=== PATIENT | female | born 1940 | race Two or more races ===

== ENCOUNTER 2019-02-05 13:23 | Outpatient (CLI) | payer OTHER | END 2019-02-05 13:27 | disposition home or self-care (01) | LOC: TOM 13:23 | DX: S05.11XA Contusion of eyeball and orbital tissues, right eye, initial encounter (principal) ==

== ENCOUNTER 2022-02-22 08:00 | Outpatient (CLI) | payer OTHER | END 2022-02-22 08:30 | disposition home or self-care (01) | LOC: PPH VACUNA 08:00 | PROVIDERS: ATTEND Emergency Medicine Pediatric Emergency Medicine | DX: Z23 Encounter for immunization (principal) ==

== ENCOUNTER 2022-07-19 14:36 | Outpatient (CLI) | payer OTHER | END 2022-07-19 14:46 | disposition home or self-care (01) | LOC: PPH VACUNA 14:36 | PROVIDERS: ATTEND Emergency Medicine Pediatric Emergency Medicine | DX: Z23 Encounter for immunization (principal) ==

== ENCOUNTER 2023-01-23 14:15 | Outpatient (CLI) | payer OTHER | END 2023-01-23 14:22 | disposition home or self-care (01) | LOC: RAD 14:15 | PROVIDERS: ATTEND Specialist | DX: E03.9 Hypothyroidism, unspecified (principal); I70.0 Atherosclerosis of aorta ==

== ENCOUNTER 2023-12-23 13:21 | Emergency (ER) | payer OTHER ==
[~2023-12-23] VITALS: Ht 154.9 cm; Wt 65.8 kg
[2023-12-23] MEDS ORDERED: JANUMET 50-1,01 EACH PO (14:12)
[2023-12-23] MEDS ORDERED: COZAAR25 MG PO (14:12)
[2023-12-23] MEDS ORDERED: ORPHENADRINE CITRATE 30 MG/ML AMPUL IM ONE (14:45)
[2023-12-23] MEDS ORDERED: ACETAMINOPHEN 500 MG GEL..CAP PO ONE (14:45)
[2023-12-23] MEDS ORDERED: NORFLEX100MG PO (17:24)
== END 2023-12-23 19:05 | disposition home or self-care (01) ==
LOC: ER 13:21
DX: M51.36 Other intervertebral disc degeneration, lumbar region (principal); M54.50 Low back pain, unspecified; E11.9 Type 2 diabetes mellitus without complications; Z79.84 Long term (current) use of oral hypoglycemic drugs; I10 Essential (primary) hypertension; Z91.041 Radiographic dye allergy status
CPT/HCPCS: 72100; 96372; 99283; J2360

== ENCOUNTER 2024-09-14 11:04 | Outpatient (CLI) | payer OTHER ==
[~2024-09-14 11:04] MED LIST: COZAAR25 MG PO; JANUMET 50-1,01 EACH PO; NORFLEX100MG PO
== END 2024-09-14 11:06 | disposition home or self-care (01) ==
LOC: SONOGRAMA 11:04
PROVIDERS: ATTEND Pathology Anatomic Pathology & Clinical Pathology
DX: D11.0 Benign neoplasm of parotid gland (principal)

== ENCOUNTER 2025-04-17 18:40 | Emergency (ER) | payer OTHER ==
[~2025-04-17] VITALS: Ht 152.4 cm; Wt 63.5 kg
[2025-04-17] MEDS ORDERED: SYNTHROID50 MCG PO (19:17)
[2025-04-17] MEDS ORDERED: LIPITOR40 M1 PO (19:17)
[2025-04-17] MEDS ORDERED: LOSARTAN POTAS100 MG PO (19:17)
[2025-04-17 23:48] LABS: BASO % 0.4 % (0.1-1.2); EOS # 0.17 (0.04-0.54); EOS % 1.0 % (0.7-7.0); LYMPH # 3.04 (1.18-3.74); LYMPH % 18.2 % (19.3-53.1); MEAN PLATELET VOLUME 12.00 fl (9.4-12.4); MONO # 1.06 (0.24-0.82); MONO % 6.4 % (4.7-12.5); NEUT # 12.28 (1.56-6.13); NEUT % 73.6 % (34.0-71.1); RED CELL DISTRIBUTION WIDTH 13.2 % (11.6-14.4)
[2025-04-18 00:09] LABS: BUN CREA RATIO 20.0 (7.0-25.0); CREATININE SERUM 1.49 mg/dL (0.55-1.02); GFR 33.42; GLUCOSE FASTING 133.0 mg/dL (65-100); OSMOLALITY SERUM 293.0 MOSM/KG (275-295)
== END 2025-04-18 01:09 | disposition home or self-care (01) ==
LOC: ER 18:40
DX: S01.81XA Laceration without foreign body of other part of head, initial encounter (principal); W18.39XA Other fall on same level, initial encounter; Y93.89 Activity, other specified; Y92.018 Other place in single-family (private) house as the place of occurrence of the external cause; Y99.9 Unspecified external cause status; E11.9 Type 2 diabetes mellitus without complications; Z79.84 Long term (current) use of oral hypoglycemic drugs; I10 Essential (primary) hypertension; Z91.041 Radiographic dye allergy status; Z91.013 Allergy to seafood